=== PATIENT | female | born 1960 | race Asian ===

== ENCOUNTER 2017-01-16 13:41 | Emergency (ER) | payer OTHER ==
[~2017-01-16] VITALS: Ht 167.6 cm; Wt 47.2 kg
[2017-01-16 13:46] VITALS: TEMP 36.6; Ht 167.6 cm; Wt 47.2 kg
[2017-01-16 14:41] LABS: PREG INTERNAL NEGATIVE QC NEG CLEAR BACKGROUND; PREG INTERNAL POSITIVE QC POS CONTROL LINE
--- NOTE | 2017-01-16 14:44 | EMERGENCY ROOM VISIT NOTE ---
ED Visit Note First contact with patient: 13:55 CHIEF COMPLAINT: Frequent and painful urination HISTORY OF PRESENT ILLNESS: This 56-year-old female presents to the emergency department ambulatory complaining of increased frequency of urination, burning pain with urination, and a feeling of incomplete voiding since last night. The patient passes very small volumes of urine with each episode of voiding. The patient does not have abdominal pain. They deny back pain, fever, or vaginal discharge. The patient has not frequent urinary tract infections in the past but had one in 1991. The patient does not have history of diabetes, HTN, or urinary tract system dysfunction. REVIEW OF SYSTEMS: A 10 system review of systems was completed with positives and pertinent negatives listed in the HPI. The patient does not speak Italian. Her son is translating and the history of present illness and review of systems is obtained primarily through him. ALLERGIES: No known drug allergies MEDICATIONS: None PMH: None SOCIAL HISTORY: The patient does not smoke. PHYSICAL EXAM: Vital Signs: Reviewed Nurse's notes, vital signs stable. GENERAL : This is a 56-year-old female, in no acute distress, they do not appear toxic, well-developed, well-nourished. ABDOMEN: Positive bowel sounds x 4. The abdomen is soft, mildly tender in the suprapubic area, but no masses or organs are felt. There is no CVA tenderness. The skin is clear. NEURO: Alert and oriented to person place and time. EMERGENCY DEPARTMENT COURSE: I examined the patient. The urinalysis suggests urinary tract infection and a urine culture is pending. The patient is afebrile and nontoxic in appearance. She does not have any back pain. She does not have any nausea or vomiting. She does not have any vaginal bleeding or discharge. I do not suspect kidney stone at this time. The patient will be placed on Bactrim and Pyridium. She should return with worsening symptoms. The patient was discharged home in good condition. DIAGNOSIS: UTI DISCHARGE INSTRUCTIONS & TREATMENT: Increase fluids especially cranberry juice , Bactrim twice a day for 5 days. Pyridium 3 times a day as needed for discomfort. The Pyridium would turn your urine orange/red. Call in 36 hours if you are not improved to check culture results, and the appropriateness of the antibiotic therapy. Test 01/16/17 14:05 Urine Color YELLOW Urine Appearance CLOUDY (CLEAR) Urine pH 7.0 (4.5-7.5) Urine Specific [place] 1.005 (1.000-1.030) Urine Protein NEG (NEG) Urine Glucose (UA) NEG (NEG) Urine Ketones NEG (NEG) Urine Occult Blood 3+ (NEG) Urine Nitrite NEG (NEG) Urine Bilirubin NEG (NEG) Urine Urobilinogen NEG (NEG) Urine Leukocyte Esterase LARGE (NEG) Urine WBC (Auto) >30 /hpf (0-5) Urine RBC (Auto) 0-4 /hpf (0-4) Urine Hyaline Casts (Auto) 5-10 /lpf (0-5) Urine Epithelial Cells (Auto) 0-5 /lpf (0-5) Urine Bacteria (Auto) NEG (NEG) Urine Test NEG (NEG) Current/Historical Medications Scheduled Phenazopyridine HCl (Pyridium), 200 MG PO TID Sulfa/Trimethoprim (Bactrim Ds 800MG/160MG), 1 TAB PO BID Allergies Coded Allergies: No Known Allergies (Unverified , 01/16/17) Vital Signs Date Time Temp Pulse Resp B/P Pulse Ox O2 Delivery O2 Flow Rate FiO2 01/16/17 15:03 73 16 127/68 100 Room Air 01/16/17 13:46 36.6 79 18 114/61 98 Room Air Laboratory Results Test 01/16/17 14:05 Urine Color YELLOW Urine Appearance CLOUDY (CLEAR) Urine pH 7.0 (4.5-7.5) Urine Specific [place] 1.005 (1.000-1.030) Urine Protein NEG (NEG) Urine Glucose (UA) NEG (NEG) Urine Ketones NEG (NEG) Urine Occult Blood 3+ (NEG) Urine Nitrite NEG (NEG) Urine Bilirubin NEG (NEG) Urine Urobilinogen NEG (NEG) Urine Leukocyte Esterase LARGE (NEG) Urine WBC (Auto) >30 /hpf (0-5) Urine RBC (Auto) 0-4 /hpf (0-4) Urine Hyaline Casts (Auto) 5-10 /lpf (0-5) Urine Epithelial Cells (Auto) 0-5 /lpf (0-5) Urine Bacteria (Auto) NEG (NEG) Urine Test NEG (NEG) Medications Administered Medications (Trade) Dose Ordered Sig/Macy Route Start Time Stop Time Status Last Admin Dose Admin Trimethoprim/ Sulfamethoxazole (Sulfameth/ Trimeth Ds 800/ 160MG Home Pack) 1 homepack UD ONCE PO 01/16/17 15:00 01/16/17 15:01 DC 01/16/17 15:00 1 HOMEPACK Phenazopyridine HCl (Phenazopyridine HCl 200MG Home Pack) 1 homepack UD ONCE PO 01/16/17 15:00 01/16/17 15:01 DC 01/16/17 15:00 1 HOMEPACK Departure Information Impression Primary Impression: Urinary tract infection Dispostion Home / Self-Care Condition GOOD Prescriptions Phenazopyridine HCl (Pyridium) 200 Mg Tab 200 MG PO TID for 2 Days, #6 TAB Prov: Sarah Barajas PA-C 01/16/17 Sulfa/Trimethoprim (Bactrim Ds 800MG/160MG) Tab 1 TAB PO BID for 5 Days, #10 TAB Prov: Sarah Barajas PA-C 01/16/17 Referrals No Doctor, Assigned (PCP) Patient Instructions My [facility], Urinary Tract Infecs Women Additional Instructions Increase fluids especially cranberry juice, Bactrim twice a day for 5 days. Pyridium 3 times a day as needed for discomfort. The Pyridium would turn your urine orange/red. Call in 36 hours if you are not improved to check culture results, and the appropriateness of the antibiotic therapy. Problem Qualifiers Primary Impression: Urinary tract infection
[2017-01-16 14:46] LABS: URINE APPEARANCE CLOUDY (CLEAR); URINE BILIRUBIN NEG (NEG); URINE COLOR YELLOW; URINE EPITHELIAL CELL AUTO 0-5 /lpf (0-5); URINE NITRITE NEG (NEG); URINE SPECIFIC GRAVITY 1.005 (1.000-1.030); UROBILINOGEN NEG (NEG); ZZUR CULT IF INDIC CLEAN CATCH YES
[2017-01-16 14:48] LABS: MANUAL MICROSCOPIC REQUIRED? NO; REVIEW REQ? NO
[2017-01-16] MEDS ORDERED: SEPTRA DS HOME PACK 1 EA VIAL PO ONE (15:00)
[2017-01-16] MEDS ORDERED: PHENAZOPYRIDINE HOME PACK 200 MG VIAL PO ONE (15:00)
[2017-01-16] MEDS ORDERED: PHEN-876 PO (15:01)
[2017-01-16] MEDS ORDERED: SULF800T23 PO (15:01)
[2017-01-16 15:03] VITALS: BP 127/68; PULSE 73; O2SAT 100
== END 2017-01-16 15:09 | disposition home or self-care (01) ==
LOC: C.EDB 13:44 → C.EDD 15:09
DX: N39.0 Urinary tract infection, site not specified (principal)

== ENCOUNTER 2017-11-13 13:16 | Emergency (ER) | payer OTHER ==
[~2017-11-13] VITALS: Ht 162.6 cm; Wt 47.9 kg
[2017-11-13 13:20] VITALS: TEMP 36.3; Ht 162.6 cm; Wt 47.9 kg
--- NOTE | 2017-11-13 14:08 | DIAGNOSTIC IMAGING REPORT ---
R ANKLE MIN 3 VIEWS ROUTINE CLINICAL HISTORY: Right ankle pain. Evaluate for fracture. COMPARISON: None FINDINGS: Alignment of the right ankle is anatomic. There is no acute fracture. Talar dome is intact. IMPRESSION: No acute fracture or dislocation of the right ankle. Electronically signed by: Connor Garcia M.D. 11/13/2017 2:07 PM Dictated Date/Time: 11/13/2017 2:06 PM
--- NOTE | 2017-11-13 14:27 | EMERGENCY ROOM VISIT NOTE ---
ED Visit Note First contact with patient: 13:29 CHIEF COMPLAINT: Right ankle injury 3 days ago HISTORY OF PRESENT ILLNESS: Patient is a 57-year-old female who presents emergency department accompanied by her adult son for evaluation of an injury to the right ankle that she sustained a couple of days ago. She describes an inversion injury that occurred when she fell while walking the dog a couple of days ago. Son is a medic in the [employer], he states that the iced the ankle, applied an Mitchell wrap and she has been taking ibuprofen 600 mg regularly. She has been walking on the ankle but only limitedly. They noted some bruising this morning which prompted him to come to the emergency department. The patient rates her pain a 0/10 presently. No prior history of right ankle injuries. REVIEW OF SYSTEMS: Review of systems as per HPI. All other systems reviewed were negative. At least 6 systems reviewed. PMH: Electronic medical records are reviewed and summarized as above/below. See Problem List. SOCIAL HISTORY: Patient lives at home with her family. Non-smoker.. PHYSICAL EXAM: Vital Signs: Reviewed Nurse's notes. MENTAL STATUS: Alert, oriented, and cooperative. The right ankle is slightly ecchymotic and swollen and tender over the lateral aspect but the skin is intact and there is no ligamentous instability. No pain over the 5th metatarsal or fibular head. Lisfranc joint is negative. There is no deformity. The foot and toes are warm and well-perfused. Sensation to pain and light touch is intact. EMERGENCY DEPARTMENT COURSE: X-ray reveals no fracture, only the soft tissue swelling. A gel splint were applied to the ankle under my direction and the position was satisfactory. The patient has an Mitchell wrap, she declined crutches. Conservative care measures were discussed. Medication reconciliation: I attest that I have personally reviewed the patient' s current medication list. Blood pressure screening : Patient was found to have normal blood pressure on screening and does not require follow-up. Differential diagnosis include foot verses ankle sprain/fracture, contusion, dislocation. R ANKLE MIN 3 VIEWS ROUTINE CLINICAL HISTORY: Right ankle pain. Evaluate for fracture. COMPARISON: None FINDINGS: Alignment of the right ankle is anatomic. There is no acute fracture. Talar dome is intact. IMPRESSION: No acute fracture or dislocation of the right ankle. Problem List Medical Problems: (1) Urinary tract infection Status: Resolved Allergies Coded Allergies: No Known Allergies (Unverified , 01/16/17) Vital Signs Date Time Temp Pulse Resp B/P (MAP) Pulse Ox O2 Delivery O2 Flow Rate FiO2 11/13/17 13:20 36.3 67 18 123/68 98 Room Air Departure Information Impression Primary Impression: Right ankle sprain Referrals No Doctor, Assigned (PCP) Patient Instructions My [facility] Additional Instructions Ibuprofen(Motrin, Advil) may be used for fever or pain. Use 600mg every six hours as needed. Take with food. Avoid using more than 2400mg in a 24 hour period. Do not use 2400mg per day for more than three consecutive days without physician direction. Prolonged inappropriate use can lead to stomach upset or ulcers. This medication can be taken if you need to drive, work, or perform activities which may be dangerous when taking narcotic pain medication. (AND/OR) Acetaminophen(Tylenol) may be used for fever or pain. Use 1000mg every six hours as needed. Avoid using more than 3000mg in a 24 hour period. This medication can be taken if you need to drive, work, or perform activities which may be dangerous when taking narcotic pain medication. Ice compresses for 20 minutes at a time four times daily for 2-3 days. Use the mitchell wrap and gel splint as instructed. Rest and elevate your injury. Continue current medications. Return to the ER immediately for any numbness, tingling, severe pain, extreme swelling in the extremity or as needed. Followup with your family doctor or orthopedic surgery if no improvement in 5-7 days.
[2017-11-13 15:05] VITALS: BP 102/41; PULSE 67; O2SAT 98
== END 2017-11-13 15:05 | disposition home or self-care (01) ==
LOC: C.EDB 13:18 → C.EDD 15:05
DX: S93.401A Sprain of unspecified ligament of right ankle, initial encounter (principal); W19.XXXA Unspecified fall, initial encounter; Y93.K1 Activity, walking an animal